=== PATIENT | male | born 1960 | race Two or more races ===

== ENCOUNTER 2020-10-13 19:50 | Inpatient (IN) | payer MEDICAID, OTHER, SELFPAY ==
[~2020-10-13] VITALS: Ht 170.2 cm; Wt 97.1 kg
[2020-10-13] MEDS ORDERED: HEPARIN SODIUM (PORCINE) 5000 UNITS/ML 1ML VIAL ONE ×2 (20:00→20:40)
[2020-10-13] MEDS ORDERED: CLOPIDOGREL 300 MG TAB ONE (20:08)
[2020-10-13] MEDS ORDERED: ATORVASTATIN 20 MG TAB ONE (20:08)
[2020-10-13] MEDS ORDERED: ASPirin 325 MG TAB ONE (20:09)
[2020-10-13] MEDS ORDERED: HEPARIN 1,000 UNITS/ml 1ML VIAL IV ONE (20:15)
[2020-10-13] MEDS ORDERED: NITROGLYCERIN 0.4 MG SL TAB SL PRN ×2 (20:15→22:00)
[2020-10-13] MEDS ORDERED: CLOPIDOGREL BISULFATE 75 MG TAB PO ONE (20:15)
[2020-10-13] MEDS ORDERED: ASPirin 81 mg TAB PO ONE ×2 (20:15)
[2020-10-13] MEDS ORDERED: ATORVASTATIN 20 MG TAB PO ONE (20:15)
[2020-10-13] MEDS ORDERED: MORPHINE SULFATE 4 MG/ML SYR/VIAL IV ONE ×2 (20:15→20:30)
[2020-10-13] MEDS ORDERED: LIDOCAINE 2%HCL (LOCAL ANESTH.) INJ 20ML MDV ONE (20:22)
[2020-10-13] MEDS ORDERED: IODIXANOL 320MG/ML 100ML BTL IV ONE (20:22)
[2020-10-13] MEDS ORDERED: ONDANSETRON HCL 4 MG/2 ML VIAL IV ONE (20:30)
[2020-10-13] MEDS ORDERED: ANGIOMAX 250 MG VIAL IV ONE (20:38)
[2020-10-13] MEDS ORDERED: ATROPINE SULF 1 MG/10ml SYR ONE (20:38)
[2020-10-13] MEDS ORDERED: SODIUM CHL 0.9% 50 ML ONE (20:39)
[2020-10-13] MEDS ORDERED: fentaNYL CITRATE 100 MCG/2 ML VL ONE (20:39)
[2020-10-13] MEDS ORDERED: VERAPAMIL 2.5MG/ML INJ 2ML VIAL IV ONE (20:39)
[2020-10-13] MEDS ORDERED: MIDAZOLAM HCL 1MG/1ML-2 ML VIAL ONE (20:39)
[2020-10-13] MEDS ORDERED: EPINEPHrine HCL 1 MG/10 ML SYRG ONE (20:40)
[2020-10-13 21:04] LABS: Basophils # (auto) 0.1 10 ^3/uL (0-0.2); Basophils % (auto) 0.5 % (0.0-2.0); Eosinophils # (auto) 0.3 10 ^3/uL (0-0.8); Eosinophils % (auto) 2.2 % (0.0-7.0); Hematocrit 46.4 % (41.0-53.0); Hemoglobin 16.5 g/dL (13.5-17.5); Lymphocytes # (auto) 4.2 10 ^3/uL (0.4-5.4); Lymphocytes % (auto) 36.9 % (10.0-50.0); Mean Corpuscular Hemoglobin 31.7 pg (28.0-32.0); Mean Corpuscular Hgb Conc. 35.6 g/dL (32.0-36.0); Mean Corpuscular Volume 89.1 fL (80.0-100.0); Monocytes # (auto) 0.8 10 ^3/uL (0-1.3); Monocytes % (auto) 6.7 % (0.0-12.0); Neutrophils # (auto) 6.1 10 ^3/uL (1.6-8.6); Neutrophils % (auto) 53.7 % (37.0-80.0); Nucleated Red Blood Cells % 0.5 %; Platelet Count (auto) 150 10^3/uL (140-450); Red Blood Cells 5.21 10^6/uL (4.5-5.90); Red Cell Distribution Width 13.6 % (11.8-14.3); White Blood Cell 11.4 10^3/uL (4.4-10.8)
[2020-10-13 21:19] LABS: Calcium 8.3 mg/dL (8.5-10.1)
[2020-10-13 21:24] LABS: Albumin 4.1 g/dL (3.4-5.0); BUN/Creatinine Ratio 9.6; Bilirubin, Total 0.4 mg/dL (0.2-1.0); Magnesium 1.9 mg/dL (1.6-2.6); Total Protein 8.8 g/dL (6.4-8.2)
[2020-10-13] MEDS ORDERED: TICAGRELOR 90 MG TAB ONE (21:29)
[2020-10-13 21:39] LABS: Potassium 2.9 mmol/L (3.5-5.1)
[2020-10-13 21:40] LABS: INR 1.13 (0.9-1.15)
[2020-10-13] MEDS ORDERED: EPTIFIBATIDE DRIP(0.75MG/ML) 100 ML IV ONE ×2 (21:41→22:00)
[2020-10-13] MEDS ORDERED: EPTIFIBATIDE INJ (2MG/ML) 10ML VIAL IV ONE (21:41)
[2020-10-13 21:44] LABS: Partial Thromboplastin Time > 139.0 sec (23.0-31.2)
[2020-10-13] MEDS ORDERED: FUROSEMIDE 20 MG/2 ML VIAL IV ONE (21:45)
[2020-10-13] MEDS ORDERED: POTASSIUM CHL 20 Meq TABLET PO ONE (22:00)
[2020-10-13] MEDS ORDERED: MORPHINE SULF INJ 2 MG/ML SYRINGE 1ML IV PRN (22:00)
[2020-10-13] MEDS: ATORVASTATIN 20 MG TAB PO SCH (22:00)
[2020-10-13] MEDS ORDERED: FUROSEMIDE 20 MG/2 ML VIAL ONE (22:47)
[2020-10-13] MEDS ORDERED: ONDANSETRON HCL 4 MG/2 ML VIAL ONE (23:06)
[2020-10-14] VITALS: BP 123/80
[2020-10-14 01:00] VITALS: BP 123/80
[2020-10-14] MEDS: CARVEDILOL 3.125 MG TAB PO SCH ×3 (01:01→22:00)
[2020-10-14] MEDS ORDERED: ONDANSETRON ODT 4 MG TAB PO PRN (03:30)
[2020-10-14] MEDS: HYDROcodone-ACET 5/325MG TAB PO PRN ×3 (03:51→20:46)
[2020-10-14] MEDS ORDERED: METO25TA5 PO (03:54)
[2020-10-14] MEDS: ONDANSETRON HCL 4 MG/2 ML VIAL IV PRN ×2 (04:07→20:46)
[2020-10-14 08:00] VITALS: BP_SYST 107; BP_SYST 110; BP_DIAS 68; BP_DIAS 77
[2020-10-14] MEDS: ASPirin 81 mg TAB PO SCH (09:19)
[2020-10-14] MEDS: ATORVASTATIN 20 MG TAB PO SCH (09:20)
[2020-10-14] MEDS ORDERED: TICAGRELOR 90 MG TAB PO SCH (10:00)
[2020-10-14 11:49] LABS: BUN/Creatinine Ratio 13.4; Calcium 7.5 mg/dL (8.5-10.1); Potassium 4.3 mmol/L (3.5-5.1)
[2020-10-14 16:00] VITALS: BP 112/82
[2020-10-14 17:00] VITALS: BP_SYST 112; BP_SYST 161; BP_DIAS 72; BP_DIAS 80
[2020-10-14] MEDS ORDERED: TICAGRELOR 90 MG TAB PO ONE (22:00)
[2020-10-15] VITALS: BP 129/83
[2020-10-15 05:06] VITALS: BP 128/70
[2020-10-15 08:00] VITALS: BP 104/75
[2020-10-15] MEDS: ASPirin 81 mg TAB PO SCH (10:17)
[2020-10-15] MEDS: CARVEDILOL 3.125 MG TAB PO SCH (10:18)
[2020-10-15] MEDS: ATORVASTATIN 20 MG TAB PO SCH (10:18)
[2020-10-15] MEDS ORDERED: CLOPIDOGREL 300 MG TAB PO ONE (11:00)
[2020-10-15] MEDS: HYDROcodone-ACET 5/325MG TAB PO PRN (12:49)
[2020-10-16] MEDS ORDERED: CLOPIDOGREL BISULFATE 75 MG TAB PO SCH (10:00)
== END 2020-10-15 14:35 | disposition home or self-care (01) | DRG 174 ==
LOC: ER 19:50 → EDBD 19:50 → TELE 19:51 → EDBD 19:51 → TELE-CENTR 20:44 → ER 20:44 → TELE-EAST 23:59 → CENTRAL 10-14 17:00 → TELE-CENTR 10-14 17:12
PROVIDERS: ADMIT Internal Medicine; ATTEND Internal Medicine
PROC: 4A023N7 Measurement of Cardiac Sampling and Pressure, Left Heart, Percutaneous Approach (ICD-10-PCS; principal; 2020-10-13)
PROC: 027135Z Dilation of Coronary Artery, Two Arteries with Two Drug-eluting Intraluminal Devices, Percutaneous Approach (ICD-10-PCS; 2020-10-13)
PROC: B2111ZZ Fluoroscopy of Multiple Coronary Arteries using Low Osmolar Contrast (ICD-10-PCS; 2020-10-13)
PROC: B2151ZZ Fluoroscopy of Left Heart using Low Osmolar Contrast (ICD-10-PCS; 2020-10-13)
DX: I21.09 ST elevation (STEMI) myocardial infarction involving other coronary artery of anterior wall (principal); I50.41 Acute combined systolic (congestive) and diastolic (congestive) heart failure; I25.10 Atherosclerotic heart disease of native coronary artery without angina pectoris; I21.29 ST elevation (STEMI) myocardial infarction involving other sites; E66.9 Obesity, unspecified; E78.5 Hyperlipidemia, unspecified; Z20.822 Contact with and (suspected) exposure to COVID-19; E87.6 Hypokalemia; F41.9 Anxiety disorder, unspecified; I11.0 Hypertensive heart disease with heart failure; I48.91 Unspecified atrial fibrillation; Z79.02 Long term (current) use of antithrombotics/antiplatelets; Z68.33 Body mass index [BMI] 33.0-33.9, adult; Z79.82 Long term (current) use of aspirin; Z79.899 Other long term (current) drug therapy
CPT/HCPCS: 36415; 71045; 76705; 80048; 80053; 80061; 83036; 83735; 84484; 85025; 85610; 85730; 87426; 92928; 93005; 93306; 93458; 96374; 96375; 99152; 99153; 99291; C1874; G0378; J2250; J2405; Q9967